=== PATIENT | male | born 1965 | race Caucasian/White ===

== ENCOUNTER 2019-12-22 14:03 | Emergency (ER) | payer OTHER, SELFPAY ==
[2019-12-22 14:13] VITALS: BP 132/90; PULSE 68; RESP 20; TEMP 36.7; O2SAT 100
--- NOTE | 2019-12-22 14:46 | ED.WOUNDLAC ---
HPI - Wound/Laceration General Chief Complaint: Wound/Laceration Stated Complaint: laceration on finger History of Present Illness HPI narrative: This is a 54 year old male that comes in complaining of a laceration to the left middle finger on the lateral side per patient he was cutting wood and sliced some of his finger Related Data Allergies Allergy/AdvReac Type Severity Reaction Status Date / Time No Known Allergies Allergy Verified 12/22/19 14:16 Review of Systems Review of Systems: All systems reviewed & are unremarkable except as noted in HPI and below Musculoskeletal: Comments: laceration to left lateral side of the finger not affecting the nail about 1 cm PMF Family History Family History Other Malignant neoplasm of prostate Social History Social History Smoking status: Never smoker Smoking end date: 09/25/14 Alcohol intake: current Exam Narrative: Exam Narrative: laceration to left lateral side of the finger not affecting the nail about 1 cm. bleeding well controlled and slight swelling Const: General: no acute distress HENMT: Head: normal to inspection Eyes: Pupils: Equal, round and reactive pupils present Neck: Neck: normal visual inspection Resp: Effort & Inspection: normal respiratory effort Course Vital Signs Vital signs: Vital Signs Temperature 98.0 F 12/22/19 14:13 Pulse Rate 68 12/22/19 14:13 Respiratory Rate 12/22/19 14:13 Blood Pressure 132/90 12/22/19 14:13 Pulse Oximetry 100 12/22/19 14:13 Temperature 98.0 F 12/22/19 14:13 Pulse Rate 68 12/22/19 14:13 Respiratory Rate 12/22/19 14:13 Blood Pressure 132/90 12/22/19 14:13 Pulse Oximetry 100 12/22/19 14:13 Procedures Laceration Laceration 1: Date: 12/22/19 Site: upper extremity Side (If applicable): left Size (cm): 1 Description: linear Depth: simple, single layer Local Anesthetic: lidocaine 1% Amount of anesthesia used (mL): 0.5 Pre-repair: irrigated ====== Skin Level ====== Skin layer closed with: other Size (cm): 6-0 Number of sutures: 3 ====== Subcutaneous Layer ====== ====== Muscle Layer ====== ====== Tendon Layer ====== Technique: simple interrupted Dressing: Patient tolerated well Discharge Plan Discharge Clinical Impression: Laceration Patient Disposition: Home, Self-Care Condition: Stable Instructions: Antibiotic Form, Laceration (ED), Finger Laceration (ED) Prescriptions: New cephalexin [Keflex] 500 mg capsule 500 mg PO Q12H 3 Days Qty: 6 RF: 0 Follow-up/Referrals: Rc Nascimento MD [Primary Care Provider] - Time of Disposition: 14:47 Discharge Date/Time: 12/22/19 14:50
== END 2019-12-22 14:50 | disposition home or self-care (01) ==
PROVIDERS: Emergency Provider Nurse Practitioner Family; PCP Family Medicine
DX: S61.213A Laceration without foreign body of left middle finger without damage to nail, initial encounter (principal); W45.8XXA Other foreign body or object entering through skin, initial encounter
CPT/HCPCS: 12001; 99203; G0463